=== PATIENT | male | born 1970 | race Caucasian/White ===

== ENCOUNTER 2019-09-01 14:19 | Emergency (ER) | payer SELFPAY ==
[2019-09-01 14:26] VITALS: BP 135/81; PULSE 112; RESP 16; TEMP 36.9; O2SAT 95
--- NOTE | 2019-09-01 14:29 | ECG_ITS ---
Measurements Intervals [place] Rate: 108 P: 83 NV: 147 QRS: 82 QRSD: 91 T: 73 QT: 342 QTc: 459 Interpretive Statements SINUS TACHYCARDIA BORDERLINE R WAVE PROGRESSION, ANTERIOR LEADS ABNORMAL ECG Electronically Signed On 09-01-2019 15:04:30 CDT by Chirag Murphy D.O.
[2019-09-01] MEDS: LORAZEPAM INJ 2 MG/ML VIAL IV PUSH (14:41)
--- NOTE | 2019-09-01 15:00 | PC.NURSE ---
SITTER PLAN INITIATED - ALL PAPERWORK DOCUMENTED PER HOSPITAL POLICY
--- NOTE | 2019-09-01 15:17 | PC.NURSE ---
[facility] AT [facility] PER SITTER POLICY.
[2019-09-01 15:19] LABS: Alanine Aminotransferase 57 U/L (16-63); Albumin Level 3.5 g/dL (3.4-5.0); Alkaline Phosphatase 72 U/L (46-116); Anion Gap 18.1 mmol/L (7-16); Aspartate Amino Transferase 82 U/L (15-37); Bilirubin,Total 0.2 mg/dL (0.00-1.00); Blood Urea Nitrogen 15 mg/dL (7-18); Calcium 8.2 mg/dL (8.5-10.1); Carbon Dioxide 27 mmol/L (21-32); Chloride 102 mmol/L (98-108); Estimated Glomerular Filt Rate > 60; Glucose 89 mg/dL (70-99); Osmolality Calculated 297 mOsm/kg (285-295); Potassium 3.1 mmol/L (3.5-5.1); Sodium 144 mmol/L (136-145); Thyroid Stimulating Hormone 2.01 uIU/mL (0.36-3.74); Total Protein 7.1 g/dL (6.4-8.2)
[2019-09-01 15:22] LABS: Ethanol 446 mg/dL (0-6)
[2019-09-01 15:28] LABS: Hemoglobin 15.7 g/dL (14.0-18.0); Red Blood Count 4.91 M/mm3 (4.70-6.10); White Blood Count 4.7 K/mm3 (4.8-10.8)
[2019-09-01 15:29] LABS: Hematocrit 46.7 % (40.0-54.0); Mean Corpuscular HGB Conc 33.6 g/dL (32.0-36.0); Mean Corpuscular Volume 95.1 fL (78.0-102.0); Mean Platelet Volume 9.9 fl (8.7-11.0); Platelet Count Result 141 K/mm3 (150-420); Red Cell Distribution Width 13.9 % (11.6-14.4)
[2019-09-01 15:30] LABS: Amphetamine Screen Urine Negative (Negative); Barbiturate Screen Urine Negative (Negative); Basophils Absolute Auto 0.06 K/mm3 (0.00-0.10); Basophils Percent Auto 1.3 % (0.0-1.0); Benzodiazepines Screen Urine Negative (Negative); Cannabinoid Screen Urine Negative (Negative); Cocaine Screen Urine Negative (Negative); Eosinophils Absolute Auto 0.04 K/mm3 (0.02-0.50); Eosinophils Percent Auto 0.8 % (1.0-6.0); Immature Granulocyte Absolute 0.01 K/mm3 (0.00-0.00); Immature Granulocyte Percent A 0.2 % (0.0-0.0); Lymphocytes Percent Auto 29.6 % (18.0-42.0); Methadone Screen Urine Negative (Negative); Monocytes Absolute Auto 0.34 K/mm3 (0.10-0.90); Monocytes Percent Auto 7.2 % (2.0-11.0); Neutrophils Absolute Auto 2.9 K/mm3 (1.7-7.2); Neutrophils Percent Auto 60.9 % (50.0-70.0); Opiate Screen Urine Negative (Negative); Phencyclidine Screen Urine Negative (Negative)
[2019-09-01 15:31] LABS: Appearance Urine Clear (Clear); Blood Urine 1+ (Negative); Color Urine Yellow (Yellow); Glucose Urine UA Negative (Negative); Ketones Urine Trace (Negative); Nitrate Urine Negative (Negative); Protein Urine Trace (Negative)
[2019-09-01 15:32] LABS: Add Urine Microscopic? YES; Amorphous Sediment Urine Moderate; Bacteria Urine 2+ /hpf; Bilirubin Urine Negative (Negative); Leukocyte Esterase Ur Negative (Negative); RBC Urine 0-2 /hpf (0-2); Squamous Epithelial Cell Urine Rare /hpf (Few); Urobilinogen Urine 0.2 mg/dL (0.2-1.0); WBC Urine 0-3 /hpf (0-3)
[2019-09-01 15:41] LABS: Lipase 242 U/L (73-393); Troponin I < 0.02 ng/mL (0.00-0.056)
[2019-09-01] MEDS: HALOPERIDOL LACTATE 5 MG/ML VIAL IV PUSH ×2 (15:42→23:03)
--- NOTE | 2019-09-01 15:46 | ED.ALCOHOL ---
HPI - Alcohol General Chief Complaint: Alcohol Stated Complaint: ambulance Source: patient and EMS Limitations: altered mental status and intoxication History of Present Illness HPI narrative: This is a 48-year-old gentleman that lives at home with history of alcohol abuse and apparent depression and anxiety that presents today via EMS with alcohol intoxication, patient drank over the last 2 to 3 days numerous bottles of vodka, currently anxious and of voices some suicide with no clear apparent plan but voiced that he had suicidal ideation on numerous occasions when nest. Has on previous times called EMS and never wanted to be transferred to any acute care facility. Has a history of alcohol abuse with tobacco abuse. MD complaint: alcohol intoxication Last drink: days (ago) Chronic alcohol use: Yes Previous visits for alcohol intoxication: No Recent trauma: No Associated symptoms: depression and suicidality Treatments prior to arrival: none Related Data Home Medications Medication Instructions Recorded Confirmed Unable to Obtain Home Medications 09/01/19 09/01/19 Allergies Allergy/AdvReac Type Severity Reaction Status Date / Time No Known Allergies Allergy Unverified 04/08/14 13:39 Review of Systems Review of Systems: All systems reviewed & are unremarkable except as noted in HPI and below PMFSH Past Medical History Medical History Anxiety ETOH abuse Exam Const: General: no acute distress Limitations: altered mental status and behavioral limitations HENMT: Head: normal to inspection Eyes: Conjunctivae: conjunctivae normal Pupils: Equal, round and reactive pupils present Neck: Neck: normal visual inspection Chest: Chest palpation & inspection: normal inspection of the chest Resp: Effort & Inspection: normal respiratory effort Auscultation: clear to auscultation bilaterally Cardio: Rate: regular rate and tachycardic Rhythm: regular rhythm GI: GI Palp: Yes Soft to palpation Percussion: Yes normal to percussion : Testes: Testes normal Urinary Catheter: Urinary Catheter: patent and draining Back/Spine/Pelvis: Back: no CVA tenderness Skin: General skin exam: normal color Rashes: no rashes Neuro: General: moves all extremities and no focal motor deficits Extrem: General: normal to inspection Psych: Affect: Anxious affect present Thought content: Yes Depressive thoughts present Other: Suicidal ideation Course Course Emergency Course: reassessment of patient was resting more comfortably lying in bed, initially had emotional lability but currently more stable not crying. Vital Signs Vital signs: Vital Signs Temperature 36.9 C 09/01/19 14:26 Pulse Rate 112 H 09/01/19 14:26 Respiratory Rate 16 09/01/19 14:26 Blood Pressure 135/81 09/01/19 14:26 Pulse Oximetry 95 09/01/19 14:26 Temperature 36.9 C 09/01/19 14:26 Pulse Rate 112 H 09/01/19 14:26 Respiratory Rate 16 09/01/19 14:26 Blood Pressure 135/81 09/01/19 14:26 Pulse Oximetry 95 09/01/19 14:26 MDM - Alcohol Lab Data Attestation: I reviewed the patient's lab results. Result diagrams: 09/01/19 14:49 09/01/19 14:49 Labs: Lab Results 09/01/19 09/01/19 09/01/19 Range/Units 14:48 14:49 14:49 WBC 4.7 L (4.8-10.8) K/mm3 RBC 4.91 (4.70-6.10) M/mm3 Hgb 15.7 (14.0-18.0) g/dL Hct 46.7 (40.0-54.0) % MCV 95.1 (78.0-102.0) fL MCH 32.0 H (27.0-31.0) pg MCHC 33.6 (32.0-36.0) g/dL RDW 13.9 (11.6-14.4) % Plt Count 141 L (150-420) K/mm3 MPV 9.9 (8.7-11.0) fl Immature Gran % (Auto) 0.2 H (0.0-0.0) % Neut % (Auto) 60.9 (50.0-70.0) % Lymph % (Auto) 29.6 (18.0-42.0) % Pettis % (Auto) 7.2 (2.0-11.0) % Eos % (Auto) 0.8 L (1.0-6.0) % Baso % (Auto) 1.3 H (0.0-1.0) % Lymph # (Auto) 1.40 (1.10-4.50) K/mm3 Pettis # (Auto) 0.34 (0.10-0.90) K/mm3 Eos # (Auto) 0.04 (0.02-0.50) K/mm3
--- NOTE | 2019-09-01 16:06 | PC.NURSE ---
REPORT CALLED TO CLYDE FOR ER HOLD ROOM [id number]
--- NOTE | 2019-09-01 16:15 | PC.NURSE ---
Patient transported to floor, via stretcher. Patient crawled from stretcher to bed. Sleeping
--- NOTE | 2019-09-01 16:19 | PC.NURSE ---
HI DAUGHTER [phone] - CALL PLACED TO HER, SHE STATES THAT THIS PATIENT HAS BEEN DOING THIS FOR 20 YEARS. STATES SHE IS NOT WORRIED ABOUT HIS SUICIDAL IDEATION. STATES THAT HE GETS THIS DRUNK AFTER A WEEK [facility] AND HE ENDS UP IN THE ER.
--- NOTE | 2019-09-01 16:30 | PC.NURSE ---
Patient sleeping. Sitter at bedside
--- NOTE | 2019-09-01 16:30 | PC.NURSE ---
Patient sleeping. Sitter at bedside
--- NOTE | 2019-09-01 17:00 | PC.NURSE ---
Patient sleeping. Sitter at beside.
--- NOTE | 2019-09-01 17:15 | PC.NURSE ---
Patient sleeping. Sitter at beside
--- NOTE | 2019-09-01 17:30 | PC.NURSE ---
Patient sleeping. Sitter at bedside
--- NOTE | 2019-09-01 17:45 | PC.NURSE ---
Patient sleeping. Sitter at bedside.
--- NOTE | 2019-09-01 18:00 | PC.NURSE ---
Patient sleeping. Sitter at bedside
--- NOTE | 2019-09-01 18:15 | PC.NURSE ---
Patient sleeping. Sitter at bedside
--- NOTE | 2019-09-01 18:30 | PC.NURSE ---
Patient sleeping. Sitter at bedside
--- NOTE | 2019-09-01 18:45 | PC.NURSE ---
Patient sleeping. Sitter at bedside.
--- NOTE | 2019-09-01 19:00 | PC.NURSE ---
Patient sleeping. No changes
--- NOTE | 2019-09-01 19:15 | PC.NURSE ---
Patient awake requested a drink. Meal provided. ate 75%. Asked what came next-what the plan work. Explained blood work and waiting for [address].
--- NOTE | 2019-09-01 19:30 | PC.NURSE ---
Sat up for a few minutes. Appears alert and oriented x3 at this time. Sitter with patient.
[2019-09-01 19:45] VITALS: BP 147/95; PULSE 105; RESP 18; TEMP 37.1; O2SAT 90
--- NOTE | 2019-09-01 19:50 | PC.NURSE ---
Patient resting at this time.
--- NOTE | 2019-09-01 21:00 | PC.NURSE ---
Patient dislodged IV Whole and intact.
--- NOTE | 2019-09-01 21:15 | PC.NURSE ---
new IV started. Patient taking fluids well
--- NOTE | 2019-09-01 21:30 | PC.NURSE ---
Patient requested more water.
--- NOTE | 2019-09-01 23:00 | PC.NURSE ---
scheduled haldol given.
--- NOTE | 2019-09-02 | PC.NURSE ---
Patient dislodged IV again. new IV inserted
[2019-09-02] MEDS: KCL 20 MEQ/SW 100 ML 100 ML 50 MEQ IVPB (00:56)
--- NOTE | 2019-09-02 01:00 | PC.NURSE ---
KCL started as ordered. thiamine bag completed.
--- NOTE | 2019-09-02 02:15 | PC.NURSE ---
Patient up to toilet. gait steady
--- NOTE | 2019-09-02 03:15 | PC.NURSE ---
Patient resting. KCL completed
[2019-09-02] MEDS: HALOPERIDOL LACTATE 5 MG/ML VIAL IV PUSH (06:09)
--- NOTE | 2019-09-02 06:20 | PC.NURSE ---
Patient given IV haldol. diaphretic
--- NOTE | 2019-09-02 06:30 | PC.NURSE ---
Patient dislodged IV. Did not reinsert at this time.
--- NOTE | 2019-09-02 07:30 | PC.NURSE ---
Patient pleasant, compliant
--- NOTE | 2019-09-02 07:45 | PC.NURSE ---
Patient resting in bed
--- NOTE | 2019-09-02 08:00 | PC.NURSE ---
Patient eating breakfast in bed.
[2019-09-02] MEDS: LORAZEPAM 1 MG TABLET PO (08:11)
--- NOTE | 2019-09-02 08:15 | PC.NURSE ---
Patient resting in bed
[2019-09-02 08:28] LABS: Alanine Aminotransferase 53 U/L (16-63); Albumin Level 3.5 g/dL (3.4-5.0); Alkaline Phosphatase 72 U/L (46-116); Anion Gap 12.5 mmol/L (7-16); Aspartate Amino Transferase 84 U/L (15-37); Bilirubin,Total 0.7 mg/dL (0.00-1.00); Blood Urea Nitrogen 16 mg/dL (7-18); Calcium 8.7 mg/dL (8.5-10.1); Carbon Dioxide 28 mmol/L (21-32); Chloride 99 mmol/L (98-108); Estimated Glomerular Filt Rate > 60; Glucose 125 mg/dL (70-99); Osmolality Calculated 282 mOsm/kg (285-295); Sodium 135 mmol/L (136-145); Total Protein 7.2 g/dL (6.4-8.2)
[2019-09-02 08:30] LABS: Ethanol < 3 mg/dL (0-6)
--- NOTE | 2019-09-02 08:30 | PC.NURSE ---
Patient resting in bed
[2019-09-02 08:31] LABS: Potassium 4.5 mmol/L (3.5-5.1)
[2019-09-02 08:34] VITALS: BP 142/89; PULSE 102; RESP 18; TEMP 36.4; O2SAT 93
--- NOTE | 2019-09-02 08:45 | PC.NURSE ---
Patient resting in bed, on phone. Lucas from [facility] coming for eval
--- NOTE | 2019-09-02 09:00 | PC.NURSE ---
Patient resting in bed.
--- NOTE | 2019-09-02 09:15 | PC.NURSE ---
Patient resting in bed
--- NOTE | 2019-09-02 09:23 | PC.NURSE ---
mental health made aware of him and lab levels. will get back with us for screening.
--- NOTE | 2019-09-02 09:30 | PC.NURSE ---
Patient resting in bed
--- NOTE | 2019-09-02 09:44 | PC.NURSE ---
Patient resting in bed. Lucas from [facility] coming for eval
--- NOTE | 2019-09-02 10:00 | PC.NURSE ---
Patient resting in bed
--- NOTE | 2019-09-02 10:15 | PC.NURSE ---
Patient resting in bed
--- NOTE | 2019-09-02 10:25 | PC.NURSE ---
Lucas from [facility] here
--- NOTE | 2019-09-02 10:45 | PC.NURSE ---
Patient resting in bed
--- NOTE | 2019-09-02 11:00 | PC.NURSE ---
Patient resting in bed
--- NOTE | 2019-09-02 11:15 | PC.NURSE ---
Patient resting in bed. [facility] OKed patient to go home after he signed Crisis safrty plan
--- NOTE | 2019-09-02 11:30 | PC.NURSE ---
Patient sitting up in bed.
--- NOTE | 2019-09-02 11:45 | PC.NURSE ---
Patient sitting up in bed
--- NOTE | 2019-09-02 12:00 | PC.NURSE ---
Patient getting dressed. Awaiting discharge
--- NOTE | 2019-09-02 12:15 | PC.NURSE ---
Patient transported off of floor, via wheelchair to ER for discharge
[2019-09-02 12:20] VITALS: BP 159/101; PULSE 108; O2SAT 96
== END 2019-09-02 12:25 | disposition home or self-care (01) ==
PROVIDERS: Emergency Medicine; Emergency Provider Family Medicine
DX: F10.129 Alcohol abuse with intoxication, unspecified (principal); F32.9 Major depressive disorder, single episode, unspecified
CPT/HCPCS: 36415; 51701; 80053; 80307; 81001; 83690; 84443; 84484; 85025; 93005; 96365; 96366; 96375; 99283; 99284; A9270; J1630; J2060; J3411; J3475; J3480; J7030

== ENCOUNTER 2020-01-16 19:31 | Emergency (ER) | payer OTHER, SELFPAY ==
--- NOTE | 2020-01-16 19:39 | ECG_ITS ---
Measurements Intervals [place] Rate: 95 P: 87 [place]: 155 QRS: 81 QRSD: 87 T: 80 QT: 361 QTc: 455 Interpretive Statements SINUS RHYTHM POSSIBLE RIGHT ATRIAL ENLARGEMENT BORDERLINE ECG Electronically Signed On 01-17-2020 6:54:14 CDT by Chirag Murphy D.O.
--- NOTE | 2020-01-16 19:39 | ED.OVERDOSE ---
HPI - Overdose General Chief Complaint: Overdose <Anthony Ernst MD - Last Filed: 01/17/20 06:21> Stated Complaint: AMB <Anthony Ernst MD - Last Filed: 01/17/20 06:21> Source: patient, EMS and RN notes reviewed <Anthony Ernst MD - Last Filed: 01/17/20 06:21> Mode of arrival: EMS <Anthony Ernst MD - Last Filed: 01/17/20 06:21> Limitations: intoxication <Anthony Ernst MD - Last Filed: 01/17/20 06:21> History of Present Illness HPI Narrative: patient has a history of alcohol abuse in the past. He has had some problems depression. Apparently just discharge from [facility] yesterday. Apparently family members were concerned called police. He was found unable to respond to verbal stimuli but breathing and eyes open. On arrival he is now more talkative. Originally had been combative. Now he is asking what happened and he does report that he took everything that he had which include BuSpar, Prozac, Librium, and clonazepam because he wanted to . Unknown quantities. Again he is awake and alert and answering questions appears sleepy but not having any difficulty breathing. <Anthony Ernst MD - Last Filed: 01/17/20 06:21> MD complaint: intentional overdose <Anthony Ernst MD - Last Filed: 01/17/20 06:21> Onset (ago): unknown <Anthony Ernst MD - Last Filed: 01/17/20 06:21> Timing confirmed by: family member <Anthony Ernst MD - Last Filed: 01/17/20 06:21> Intent: suicide attempt <Anthony Ernst MD - Last Filed: 01/17/20 06:21> Context: Intentional Overdose: drug/ETOH problems <Anthony Ernst MD - Last Filed: 01/17/20 06:21> Treatments Prior to Arrival: none <Anthony Ernst MD - Last Filed: 01/17/20 06:21> Related Data Home Medications: Home Medications Medication Instructions Recorded Confirmed buspirone 7.5 mg PO DAILY 01/16/20 01/17/20 fluoxetine 40 mg PO DAILY 01/16/20 01/17/20 <Anthony Ernst MD - Last Filed: 01/17/20 06:21> Allergies/Adverse Reactions: Allergies Allergy/AdvReac Type Severity Reaction Status Date / Time No Known Allergies Allergy Unverified 04/08/14 13:39 <Anthony Ernst MD - Last Filed: 01/17/20 06:21> Review of Systems Review of Systems: ROS unobtainable: Yes unobtainable due to medical condition <Anthony Ernst MD - Last Filed: 01/17/20 06:21> [facility] Past Medical History Medical History: Medical History Anxiety COPD (chronic obstructive pulmonary disease) ETOH abuse <Anthony Ernst MD - Last Filed: 01/17/20 06:21> Exam Const: General: no acute distress, alert and confusion <Anthony Ernst MD - Last Filed: 01/17/20 06:21> Nutritional Appearance: thin <Anthony Ernst MD - Last Filed: 01/17/20 06:21> HENMT: Head: normal to inspection <Anthony Ernst MD - Last Filed: 01/17/20 06:21> Ears: external ears normal <Anthony Ernst MD - Last Filed: 01/17/20 06:21> Face and sinus: normal facial exam <Anthony Ernst MD - Last Filed: 01/17/20 06:21> Eyes: Conjunctivae: conjunctivae normal <Anthony Ernst MD - Last Filed: 01/17/20 06:21> Pupils: Equal, round and reactive pupils present <Anthony Ernst MD - Last Filed: 01/17/20 06:21> EOM: EOMs intact bilaterally <Anthony Ernst MD - Last Filed: 01/17/20 06:21> Neck: Neck: normal visual inspection <Anthony Ernst MD - Last Filed: 01/17/20 06:21> Resp: Effort & Inspection: normal respiratory effort <Anthony Ernst MD - Last Filed: 01/17/20 06:21> Auscultation: clear to auscultation bilaterally <Anthony Ernst MD - Last Filed: 01/17/20 06:21> Cardio: Rate: regular rate <Anthony Ernst MD - Last Filed: 01/17/20 06:21> Rhythm: regular rhythm <Anthony Ernst MD - Last Filed: 01/17/20 06:21> GI: GI Palp: Yes Soft to palpation and No Tenderness to palpation present (GI) <Anthony Ernst MD - Last Filed: 01/17/20 06:21> Auscultation: normal bowel sounds <Anthony Ernst MD - Last Filed
[2020-01-16 19:41] VITALS: BP 125/92; PULSE 102; RESP 18; TEMP 36.6; O2SAT 94
[2020-01-16 19:56] LABS: Basophils Absolute Auto 0.09 K/mm3 (0.00-0.10); Basophils Percent Auto 1.1 % (0.0-1.0); Eosinophils Absolute Auto 0.23 K/mm3 (0.02-0.50); Eosinophils Percent Auto 2.9 % (1.0-6.0); Hematocrit 54.9 % (40.0-54.0); Hemoglobin 16.8 g/dL (14.0-18.0); Immature Granulocyte Absolute 0.02 K/mm3 (0.00-0.00); Immature Granulocyte Percent A 0.3 % (0.0-0.0); Lymphocytes Absolute Auto 1.76 K/mm3 (1.10-4.50); Mean Corpuscular HGB Conc 30.6 g/dL (32.0-36.0); Mean Corpuscular Hemoglobin 32.6 pg (27.0-31.0); Mean Corpuscular Volume 106.6 fL (78.0-102.0); Mean Platelet Volume 11.7 fl (8.7-11.0); Monocytes Absolute Auto 0.36 K/mm3 (0.10-0.90); Monocytes Percent Auto 4.5 % (2.0-11.0); Neutrophils Absolute Auto 5.5 K/mm3 (1.7-7.2); Neutrophils Percent Auto 69.2 % (50.0-70.0); Platelet Count Result 198 K/mm3 (150-420); Red Blood Count 5.15 M/mm3 (4.70-6.10); Red Cell Distribution Width 13.5 % (11.6-14.4)
[2020-01-16] MEDS: SODIUM CHLORIDE 0.9% IV 1,000 ML 999 ML IV CONT (19:58)
[2020-01-16 20:04] VITALS: BP 126/83; PULSE 100; RESP 16
[2020-01-16 20:12] LABS: Alanine Aminotransferase 368 U/L (16-63); Alkaline Phosphatase 80 U/L (46-116); Anion Gap 13 mmol/L (8-16); Bilirubin,Total 0.5 mg/dL (0.00-1.00); Blood Urea Nitrogen 24 mg/dL (7-18); Calcium 9.4 mg/dL (8.5-10.1); Carbon Dioxide 27 mmol/L (21-32); Chloride 105 mmol/L (98-108); Estimated Glomerular Filt Rate > 60; Glucose 127 mg/dL (70-99); Magnesium 2.1 mg/dL (1.8-2.4); Osmolality Calculated 306 mOsm/kg (285-295); Potassium 4.3 mmol/L (3.5-5.1); Sodium 145 mmol/L (136-145); Total Protein 8.6 g/dL (6.4-8.2)
[2020-01-16 20:15] LABS: Ethanol 228 mg/dL (0-6)
[2020-01-16 20:16] LABS: Acetaminophen 0 ug/mL (10-30); Salicylate 3.5 mg/dL (2.8-20.0)
--- NOTE | 2020-01-16 20:21 | PC.NURSE ---
Called [place] [facility] - Spoke to Shima. Supportive care only, do not give romazicon. Check CPK and PT/INR now. repeat all labs in 6 hrs.
[2020-01-16 20:40] VITALS: BP 138/87; PULSE 100; RESP 16; O2SAT 94
[2020-01-16 20:56] LABS: Prothrombin Time 10.3 Seconds (9.64-11.0)
[2020-01-16 20:57] LABS: Creatine Kinase 103 U/L (39-308)
[2020-01-16 20:57] LABS: Aspartate Amino Transferase 179 U/L (15-37)
[2020-01-16 21:25] VITALS: BP 111/69; PULSE 102; RESP 16; O2SAT 94
[2020-01-16 22:12] VITALS: BP 117/73; PULSE 102; RESP 20; O2SAT 93
--- NOTE | 2020-01-16 22:37 | PC.NURSE ---
Pt sleeping, VSS, report to Abdi DODD
--- NOTE | 2020-01-16 23:44 | PC.NURSE ---
2245 pt sleeping, repositions self in cot. direct vision of this advertising writer. 2315 pt sleeping, no distress. respiration even and unlabored. 2345 pt sleeping.
[2020-01-17] VITALS (8 sets, daily range): BP systolic 109–132; BP diastolic 66–91; PULSE 58–100; RESP 18–20; O2SAT 92–98
--- NOTE | 2020-01-17 01:13 | PC.NURSE ---
0015 pt sleeping, 0045 pt sleeping, 0115 pt sleeping.
--- NOTE | 2020-01-17 02:12 | PC.NURSE ---
0145 pt sleeping. 0210 pt awake, requesting urinal. pt up to bedside. unsteady when standing. applied yellow gripper socks, fall risk sticker to name band. assisted back to bed. pt aware he is at a hospital. denies any suicidal ideation at this time. oriented to treatment and procedure for repeat labs and crisis assessment when etoh level is below 80. pt is unoriented to time of day, town. encouraged sleep, warm blanket applied. ice water supplied.
--- NOTE | 2020-01-17 03:19 | PC.NURSE ---
Addendum entered by Abdi Peterson RN 01/17/20 06:36: spoke with Anurag. Original Note: update to poison control. suggested repeat ekg and liver enzymes along with repeat etoh level in am
--- NOTE | 2020-01-17 04:17 | PC.NURSE ---
0315 pt sleeping, 0345 pt sleeping, 0415 pt sleeping
--- NOTE | 2020-01-17 06:00 | PC.NURSE ---
0430 pt sleeping, 0515 pt sleeping. 0545 pt sleeping.
--- NOTE | 2020-01-17 06:19 | ECG_ITS ---
Measurements Intervals [place] Rate: 104 P: 89 NC: 144 QRS: 81 QRSD: 85 T: 80 QT: 338 QTc: 446 Interpretive Statements SINUS TACHYCARDIA POSSIBLE RIGHT ATRIAL ENLARGEMENT BORDERLINE ECG Electronically Signed On 01-17-2020 6:54:30 CDT by Chirag Murphy D.O.
--- NOTE | 2020-01-17 06:37 | PC.NURSE ---
call from padmini from poison control, update given.
--- NOTE | 2020-01-17 06:38 | PC.NURSE ---
call from pt daughter, sal mack, states she called police last night for wellness check. states pt was calling family and friends, telling them goodbye and that he had taken a bunch of pills. when daughter tried to call pt he wouldnt answer the phone.
--- NOTE | 2020-01-17 06:42 | PC.NURSE ---
pt awake for labs and repeat ekg. pt back to sleep.
[2020-01-17 06:58] LABS: Alanine Aminotransferase 282 U/L (16-63); Albumin Level 3.5 g/dL (3.4-5.0); Alkaline Phosphatase 71 U/L (46-116); Anion Gap 7 mmol/L (8-16); Aspartate Amino Transferase 134 U/L (15-37); Bilirubin,Total 0.3 mg/dL (0.00-1.00); Blood Urea Nitrogen 24 mg/dL (7-18); Carbon Dioxide 31 mmol/L (21-32); Chloride 108 mmol/L (98-108); Creatine Kinase 80 U/L (39-308); Estimated Glomerular Filt Rate > 60; Ethanol < 3 mg/dL (0-6); Glucose 75 mg/dL (70-99); Osmolality Calculated 305 mOsm/kg (285-295); Potassium 3.9 mmol/L (3.5-5.1); Sodium 146 mmol/L (136-145); Total Protein 6.8 g/dL (6.4-8.2)
--- NOTE | 2020-01-17 07:12 | PC.NURSE ---
poison control called and given updated lab and ekg results. spoke with
[2020-01-17 07:47] LABS: Amphetamine Screen Urine Negative (Negative); Barbiturate Screen Urine Negative (Negative); Benzodiazepines Screen Urine Positive (Negative); Cannabinoid Screen Urine Positive (Negative); Cocaine Screen Urine Negative (Negative); Methadone Screen Urine Negative (Negative); Opiate Screen Urine Negative (Negative); Phencyclidine Screen Urine Negative (Negative)
--- NOTE | 2020-01-17 07:53 | PC.NURSE ---
food tray given, pt remains in direct vision of this information writer.
--- NOTE | 2020-01-17 08:11 | PC.NURSE ---
pt ate 100% of meal. back to sleep, remains in direct vision of this television script writer.
--- NOTE | 2020-01-17 08:18 | PC.NURSE ---
Addendum entered by Abdi Peterson RN 01/17/20 08:26: 0710 noted pt to be incontinent of stool, skin care given. pull up brief applied. all personal belongings removed from room. pt more alert to whereabouts, states does not remember making any phone calls to friends and family last night alerting them that he had taken pills. when asked if he would harm himself or if he had any suicidal ideation, pt states i honestly cant answer that. . Original Note: 0710 pt awakened, accepted breakfast tray offered, explained need for urine. pt up to side of bed to use urinal
--- NOTE | 2020-01-17 08:25 | PC.NURSE ---
per dr nuñez, cardiac monitoring can be discontinued. wires removed from pt and from room.
--- NOTE | 2020-01-17 08:28 | PC.NURSE ---
pt directly back to sleep as soon as any interaction with this speech writer stops.
[2020-01-17] MEDS: ALBUTEROL SULFATE (*SP) INHALER 4 PUFF INHALATION (08:50)
--- NOTE | 2020-01-17 09:08 | PC.NURSE ---
pt awakened to clarify home medications. back to sleep after conversation.
--- NOTE | 2020-01-17 09:48 | PC.NURSE ---
pt sleeping , awakened for crisis assessment with alena.
--- NOTE | 2020-01-17 10:35 | PC.NURSE ---
update to padmini from poison control, sandy out to speak with supervisor electronic testing. sitter initiated at this time as there are now other pts in er. per alena, pt to be admitted voluntarily . will attempt placement.
--- NOTE | 2020-01-17 11:39 | PC.NURSE ---
Addendum entered by Abdi Peterson RN 01/17/20 11:40: report to nicholas lo. care turned over. Original Note: food tray ordered for lunch, pt sleeping, sitter Annabelle outside of room. alena continues to attempt to find placement.
--- NOTE | 2020-01-17 11:47 | PC.NURSE ---
call from [facility], requesting pt be covid tested and UA results. dr nuñez aware of same.
[2020-01-17 12:08] LABS: Add Urine Microscopic? NO; Appearance Urine Clear (Clear); Bilirubin Urine Negative (Negative); Blood Urine Negative (Negative); Color Urine Yellow (Yellow); Glucose Urine UA Negative (Negative); Ketones Urine Negative (Negative); Leukocyte Esterase Ur Negative (Negative); Nitrate Urine Negative (Negative); Protein Urine Negative (Negative); Specific Grav Ur 1.025 (1.010-1.020); Urobilinogen Urine 0.2 mg/dL (0.2-1.0); pH Urine 5.5 (5.0-8.0)
--- NOTE | 2020-01-17 13:09 | PC.NURSE ---
No change in pt status, pt resting comfortably on stretcher. sitter at bedside. awaiting psych placement.
[2020-01-17 22:14] LABS: SARS-CoV-2 RNA PCR Negative
== END 2020-01-17 14:31 | disposition short-term general hospital (02) ==
PROVIDERS: Emergency Medicine; Emergency Provider Emergency Medicine
DX: T50.992A Poisoning by other drugs, medicaments and biological substances, intentional self-harm, initial encounter (principal); F10.129 Alcohol abuse with intoxication, unspecified; R45.1 Restlessness and agitation; F12.90 Cannabis use, unspecified, uncomplicated; R94.5 Abnormal results of liver function studies; Z79.899 Other long term (current) drug therapy; Z20.828 Contact with and (suspected) exposure to other viral communicable diseases
CPT/HCPCS: 36415; 80053; 80307; 81003; 82550; 83735; 85025; 85610; 87635; 93005; 94640; 96360; 99285; A9270; C9803; J7030; U0003

== ENCOUNTER 2020-03-27 14:42 | Emergency (ER) | payer OTHER, SELFPAY ==
--- NOTE | ~2020-03-27 | XR_ITS ---
EXAMINATION: XR chest 1V portable EXAM DATE: 03/27/2020 15:26 INDICATION: anxiety, general chest pain, H/O COPD. TECHNIQUE: Portable AP frontal chest x-ray was obtained. A 2nd image obtained with nipple markers aft er review of the initial image. There is no prior study for comparison. FINDINGS: The lungs are clear. There are no pleural effusions. The cardiomediastinal silhouette is within normal limits. There is no pneumothorax suspected. The bones and soft tissues are unremarka ble. IMPRESSION: No acute cardiopulmonary findings. Reviewed, dictated and finalized at location B. AL AIDE
--- NOTE | 2020-03-27 14:48 | ED.PSYCH ---
HPI - Psych General Chief Complaint: Psychiatric Symptoms Stated Complaint: psych. Time Seen by Provider: 03/27/20 14:48 Source: patient and police Mode of arrival: ambulatory Limitations: other ( Patient talked mostly to the nurse but refused to describe his current situation with me.) History of Present Illness HPI Narrative: 49-year-old man with a history of alcohol abuse, COPD and anxiety brought to the emergency department by EMS after somebody called the police because they were concerned about him. He states that he is questioning his role in the world because his girlfriend broke up with him recently. He denies having expressed suicidal thoughts or desire and denies having done anything to harm himself. He denies intent to harm anyone else. He expresses a desire to go home. complaint: other (agitation, sobbing) Onset (ago): day(s) Duration: resolved prior to arrival Context: recent alcohol abuse Associated symptoms: denies other symptoms Treatments prior to arrival: none Related Data Home Medications Medication Instructions Recorded Confirmed buspirone 7.5 mg PO DAILY 01/16/20 01/17/20 fluoxetine 40 mg PO DAILY 01/16/20 01/17/20 Allergies Allergy/AdvReac Type Severity Reaction Status Date / Time No Known Allergies Allergy Unverified 04/08/14 13:39 Review of Systems Constitutional: Constitutional: Denies chills, Denies fever(s) and Denies weakness Eyes: Eyes: Denies change in vision and Denies photophobia ENT: Denies dysphagia, Denies nasal congestion and Denies sore throat Cardiovascular: Cardiovascular: Denies chest pain and Denies radiating jaw, neck or arm pain Respiratory: Respiratory: Denies cough and Denies dyspnea Gastrointestinal: Gastrointestinal: Denies abdominal pain, Denies nausea and Denies vomiting Musculoskeletal: Musculoskeletal: Denies arthralgias and Denies joint swelling Neurologic: Denies vertigo, Denies dizziness, Denies syncope, Denies headache(s), Denies focal weakness and Denies numbness Psychiatric: Psychiatric: Reports anxiety PMFSH Past Medical History Medical History Anxiety COPD (chronic obstructive pulmonary disease) ETOH abuse Social History Social History (Updated 03/27/20 @ 19:03 by Jonathan Stratton MD) Smoking status: Current every day smoker Alcohol intake: current Alcohol use details: Daily Substance use: former Substance use type: marijuana Living arrangements: with friend(s) Exam Const: General: healthy appearing, no acute distress and alert HENMT: General nose exam: Normal nares present Face and sinus: normal facial exam Throat: posterior oropharynx normal Eyes: Conjunctivae: conjunctivae normal Pupils: Equal, round and reactive pupils present EOM: EOMs intact bilaterally Resp: Effort & Inspection: normal respiratory effort and not labored Auscultation: clear to auscultation bilaterally, no rales, no rhonchi and no wheezes Cardio: Rate: regular rate Rhythm: regular rhythm Heart sounds: no murmurs Skin: General skin exam: normal color, no jaundice and no pallor Rashes: no rashes Neuro: General: patient oriented x3, moves all extremities, no focal motor deficits and CN's II-XI intact bilaterally Speech: normal speech Gait exam (Neuro): Normal gait present Extrem: General: normal to inspection and no clubbing, cyanosis or edema Psych: Appearance: grossly normal Mental Status: mental status grossly normal Affect: Sad affect present Thought content: Yes Normal thought content present Other: Patient is alternately angry and sobbing. He cooperates poorly with initial interview however with repeated conversations is able to explain his current state. Course Course Emergency Course: Patient repeatedly asked to leave however I explained to him that unless he had responsible adult who could escort him home and take responsibility for his safety, he would not be able to leave the emergency department. He mad
[2020-03-27 15:03] VITALS: PULSE 105; RESP 20; TEMP 36.6; O2SAT 94
--- NOTE | 2020-03-27 15:03 | ECG_ITS ---
Measurements Intervals [place] Rate: 101 P: 91 MD: 148 QRS: 86 QRSD: 92 T: 82 QT: 338 QTc: 440 Interpretive Statements SINUS TACHYCARDIA LIMB LEAD REVERSAL RIGHT ATRIAL ENLARGEMENT BORDERLINE R WAVE PROGRESSION, ANTERIOR LEADS MINIMAL Q WAVES- INFERIOR LEADS BORDERLINE ECG Electronically Signed On 03-27-2020 15:59:52 PCAS by Chirag Murphy D.O.
[2020-03-27 15:23] LABS: Basophils Absolute Auto 0.15 K/mm3 (0.00-0.10); Basophils Percent Auto 1.2 % (0.0-1.0); Eosinophils Absolute Auto 0.05 K/mm3 (0.02-0.50); Eosinophils Percent Auto 0.4 % (1.0-6.0); Hematocrit 56.1 % (40.0-54.0); Immature Granulocyte Absolute 0.04 K/mm3 (0.00-0.00); Immature Granulocyte Percent A 0.3 % (0.0-0.0); Lymphocytes Absolute Auto 2.45 K/mm3 (1.10-4.50); Lymphocytes Percent Auto 18.8 % (18.0-42.0); Mean Corpuscular HGB Conc 33.9 g/dL (32.0-36.0); Mean Corpuscular Hemoglobin 33.2 pg (27.0-31.0); Mean Corpuscular Volume 98.1 fL (78.0-102.0); Mean Platelet Volume 9.7 fl (8.7-11.0); Monocytes Absolute Auto 0.89 K/mm3 (0.10-0.90); Monocytes Percent Auto 6.8 % (2.0-11.0); Neutrophils Absolute Auto 9.4 K/mm3 (1.7-7.2); Neutrophils Percent Auto 72.5 % (50.0-70.0); Platelet Count Result 235 K/mm3 (150-420); Red Blood Count 5.72 M/mm3 (4.70-6.10); Red Cell Distribution Width 14.1 % (11.6-14.4)
--- NOTE | 2020-03-27 15:46 | PC.NURSE ---
pt refusing to provide urine sample
[2020-03-27 15:47] LABS: Alanine Aminotransferase 29 U/L (16-63); Albumin Level 4.3 g/dL (3.4-5.0); Alkaline Phosphatase 76 U/L (46-116); Anion Gap 19 mmol/L (8-16); Aspartate Amino Transferase 38 U/L (15-37); Bilirubin,Total 0.4 mg/dL (0.00-1.00); Blood Urea Nitrogen 24 mg/dL (7-18); Calcium 9.1 mg/dL (8.5-10.1); Carbon Dioxide 23 mmol/L (21-32); Chloride 96 mmol/L (98-108); Estimated CRCL calculation 89 ml/min; Estimated Glomerular Filt Rate > 60; Glucose 99 mg/dL (70-99); Osmolality Calculated 290 mOsm/kg (285-295); Potassium 3.8 mmol/L (3.5-5.1); Sodium 138 mmol/L (136-145); Thyroid Stimulating Hormone 3.49 uIU/mL (0.36-3.74); Total Protein 8.1 g/dL (6.4-8.2)
[2020-03-27 15:52] LABS: Ethanol 344 mg/dL (0-6); Troponin I 5.9 ng/L (0.00-60.4)
[2020-03-27 15:53] LABS: Acetaminophen < 2 ug/mL (10-30); Salicylate 4.4 mg/dL (2.8-20.0)
[2020-03-27 16:32] VITALS: BP 128/86; PULSE 106; RESP 16; O2SAT 96
--- NOTE | 2020-03-27 16:36 | PC.NURSE ---
pt resting comfortably on stretcher, lights dimmed.
--- NOTE | 2020-03-27 17:14 | PC.NURSE ---
Pt sitting up on stretcher, pt given meal because he states he is hungry. this rn requested a urine sample, pt still unable to provide. pt on cell phone.
--- NOTE | 2020-03-27 17:48 | PC.NURSE ---
Pt laying on stretcher talking on phone with girlfriend.
[2020-03-27 17:50] VITALS: BP 124/98; PULSE 82; RESP 16; O2SAT 97
--- NOTE | 2020-03-27 18:01 | PC.NURSE ---
Pt up yelling stating he wants his clothing and would like to leave right now. pt advised per edp that he must have a responsible adult to come pick him up. pt denies any suicidal or homicidal ideation. pt yelling at person on phone trying to get a ride home and pt removed himself from all monitoring.
== END 2020-03-27 18:51 | disposition home or self-care (01) ==
LOC: CHSED 14:44
PROVIDERS: Emergency Provider Emergency Medicine
DX: F10.129 Alcohol abuse with intoxication, unspecified (principal); F17.200 Nicotine dependence, unspecified, uncomplicated
CPT/HCPCS: 36415; 71045; 80053; 80307; 84443; 84484; 85025; 93005; 99284

== ENCOUNTER 2022-05-03 07:14 | Outpatient (CLI) | payer OTHER, SELFPAY ==
[2022-05-03 07:33] LABS: Basophils Absolute Auto 0.08 K/mm3 (0.00-0.10); Basophils Percent Auto 1.6 % (0.0-1.0); Eosinophils Absolute Auto 0.26 K/mm3 (0.02-0.50); Hematocrit 50.1 % (40.0-54.0); Hemoglobin 16.8 g/dL (14.0-18.0); Immature Granulocyte Absolute 0.01 K/mm3 (0.00-0.00); Immature Granulocyte Percent A 0.2 % (0.0-0.0); Lymphocytes Absolute Auto 1.41 K/mm3 (1.10-4.50); Lymphocytes Percent Auto 27.3 % (18.0-42.0); Mean Corpuscular HGB Conc 33.5 g/dL (32.0-36.0); Mean Corpuscular Hemoglobin 32.5 pg (27.0-31.0); Mean Corpuscular Volume 96.9 fL (78.0-102.0); Mean Platelet Volume 10.4 fl (8.7-11.0); Monocytes Absolute Auto 0.45 K/mm3 (0.10-0.90); Monocytes Percent Auto 8.7 % (2.0-11.0); Neutrophils Percent Auto 57.2 % (50.0-70.0); Platelet Count Result 148 K/mm3 (150-420); Red Blood Count 5.17 M/mm3 (4.70-6.10); Red Cell Distribution Width 12.7 % (11.6-14.4); White Blood Count 5.2 K/mm3 (4.8-10.8)
[2022-05-03 07:55] LABS: Hemoglobin A1C 5.5 % (<5.7)
[2022-05-03 08:30] LABS: Alanine Aminotransferase 19 U/L (16-63); Albumin Level 3.8 g/dL (3.4-5.0); Alkaline Phosphatase 62 U/L (46-116); Anion Gap 4 mmol/L (8-16); Aspartate Amino Transferase 20 U/L (15-37); Bilirubin,Total 0.4 mg/dL (0.00-1.00); Blood Urea Nitrogen 17 mg/dL (7-18); Calcium 8.8 mg/dL (8.5-10.1); Carbon Dioxide 34 mmol/L (21-32); Chloride 106 mmol/L (98-108); Cholesterol 173 mg/dL (0-200); Estimated Glomerular Filt Rate > 60; Glucose 101 mg/dL (70-99); HDL Direct 62 mg/dL (40-60); LDL Cholesterol Calculated 105 mg/dL (<130); Osmolality Calculated 299 mOsm/kg (285-295); Potassium 4.5 mmol/L (3.5-5.1); Sodium 144 mmol/L (136-145); Total Protein 6.7 g/dL (6.4-8.2); Triglycerides 31 mg/dL (0-150); Vitamin B12 518 pg/mL (193-986)
[2022-05-03 08:50] LABS: Thyroid Stimulating Hormone 2.49 uIU/mL (0.36-3.74)
[2022-05-03 08:51] LABS: Folic Acid > 20.0 ng/mL (8.6->20)
[2022-05-08 17:23] LABS: Vitamin D 25 Hydroxy 35 ng/mL (30-100)
== END 2022-05-03 07:15 | disposition home or self-care (01) ==
LOC: CHSLAB 07:18
PROVIDERS: PCP Nurse Practitioner Family; Visit Provider Nurse Practitioner Family
DX: Z51.81 Encounter for therapeutic drug level monitoring (principal); Z79.899 Other long term (current) drug therapy; F32.9 Major depressive disorder, single episode, unspecified; F41.1 Generalized anxiety disorder
CPT/HCPCS: 36415; 80053; 80061; 82306; 82607; 82746; 83036; 84443; 85025

== ENCOUNTER 2022-06-18 08:57 | Outpatient (CLI) | payer OTHER, SELFPAY ==
--- NOTE | 2022-06-18 | ECG_ITS ---
Measurements Intervals [place] Rate: 75 P: 87 [place]: 164 QRS: 75 QRSD: 93 T: 74 QT: 390 QTc: 436 Interpretive Statements SINUS RHYTHM BORDERLINE R WAVE PROGRESSION, ANTERIOR LEADS BORDERLINE ECG COMPARED TO ECG 03/27/2020 15:22:37 SINUS RHYTHM NOW PRESENT Electronically Signed On 06-18-2022 14:15:58 CDT by Chirag Murphy D.O.
--- NOTE | ~2022-06-18 | XR_ITS ---
XR chest 2V DATE: 06/18/2022 09:38 INDICATION: Dyspnea on exertion, palpitations TECHNIQUE: PA and lateral views COMPARISON: 03/27/2020 portable AP chest FINDINGS: Bilateral hyperinflation and relative flattening the diaphragm, consistent with COPD. No pu lmonary infiltrate or consolidation, pleural effusion or pulmonary vascular congestion or pneumothora x is detected. Normal heart size. No hilar or mediastinal enlargement. Aortic arch calcification. Osteopenia. Likely chronic mild loss of height and anterior wedging of multiple thoracic vertebral bodies. COPD IMPRESSION: Aortic atherosclerosis Osteopenia Reviewed, dictated and finalized at location B.
--- NOTE | ~2022-06-18 | US_ITS ---
Abdominal Sonogram: Real-time sonographic imaging of the abdomen was performed. Clinical History: Abdominal pain Findings: The liver appears normal with no evidence of mass lesion or bile duct dilatation. Main por federica vein demonstrates normal direction of flow. The spleen is normal in size without evidence of foca l lesion. The gallbladder is well distended, and appears normal with no evidence of gallstone or wal l thickening. The common bile duct measures 5 mm. There is atherosclerotic change of the aorta. Visua lized pancreas and IVC are unremarkable. The right kidney measures 12.1 cm in length and the left ki dney measures 12.2 cm. There is no hydronephrosis or renal calculus. Impression: No significant abnormality seen. Reviewed, dictated and finalized at location . Impression: No significant abnormality seen.
--- NOTE | 2022-06-19 16:40 | WPDPFTINT ---
PFT Procedure Performed PFT Procedure Performed Plethysmography (Lung Vol) Diffusing Cap (DLCO) Flow Vol Loop Spirometry w/o Bronchodil PFT Interpretation This is a pulmonary function test with spirometry, plethysmography and diffusing capacity. The test was performed and results interpreted in accordance with the 2019 and 2005 ATS/ERS Task Force guidelines respectively using the Global Lung Function Initiative-2012 reference equations. Patient demonstrated good effort and cooperation. Reproducibility criteria were met. The quality of the spirometry maneuver was Grade A. Findings: Spirometry: There is decreased maximal expiratory airflow at all lung volumes with concave expiratory flow tracing. The contour the inspiratory flow tracing is normal. The FVC is 2.81 L, 57% predicted. The FEV1 is 0.76 L, 20% predicted. The FEV1: FVC ratio is 27%. Plethysmography: The total lung capacity is 9.65 L, 138% predicted. The functional residual capacity is 7.82 L, 218% predicted. The residual volume is 6.64 L, 316% predicted. Diffusing capacity: The diffusing capacity unadjusted for hemoglobin and carboxyhemoglobin is 17.5, 58% predicted. The diffusing capacity adjusted for alveolar volume is 2.74, 62% predicted. Impression: There is a very severe obstructive abnormality. The increase in residual volume is consistent with air trapping from an obstructive abnormality. Hyperinflation is present as demonstrated by the increase in functional residual capacity and total lung capacity and is consistent with an obstructive abnormality. The diffusing capacity unadjusted for hemoglobin and carboxyhemoglobin is moderately decreased and normalizes when adjusted for alveolar volume. Impression: There is a moderately severe restrictive ventilatory abnormality. The spirometry is normal without evidence of an obstructive abnormality. The diffusing capacity unadjusted for hemoglobin and carboxyhemoglobin is moderately decreased and remains mildly decreased when adjusted for alveolar volume. There are no prior studies for comparison
== END 2022-06-18 08:58 | disposition home or self-care (01) ==
PROVIDERS: PCP Internal Medicine; Visit Provider Internal Medicine
DX: R06.09 Other forms of dyspnea (principal); R00.2 Palpitations; R94.2 Abnormal results of pulmonary function studies; I70.0 Atherosclerosis of aorta; M85.88 Other specified disorders of bone density and structure, other site; R94.31 Abnormal electrocardiogram [ECG] [EKG]
CPT/HCPCS: 71046; 76700; 93005; 94375; 94726; 94729

== ENCOUNTER 2022-06-25 07:19 | Outpatient (NON) | payer OTHER, SELFPAY | END 2022-06-26 07:20 | disposition home or self-care (01) | PROVIDERS: PCP Internal Medicine; Visit Provider Internal Medicine Gastroenterology | DX: R63.4 Abnormal weight loss (principal) | CPT/HCPCS: 88305 ==

== ENCOUNTER 2022-06-25 12:19 | Day surgery (SDC) | payer OTHER, SELFPAY ==
[2022-06-19 07:52] VITALS: BMI 19.5
[2022-06-19 12:35] VITALS: BMI 19.7
--- NOTE | 2022-06-25 10:15 | P.PNAN_ITS ---
Anes - Initial Pre Proc Eval Procedure: Operation Date: 06/25/22 14:30 Proposed Procedures p Esophagogastroduodenoscopy - Deonte Menendez MD s Diagnostic Colonoscopy - Deonte Menendez MD Date/Time: 06/25/22 10:15 Surgeon: Deonte Menendez MD Pre Op Diagnosis: Epigastric pain, nausea, weight loss, Patient Data Age: 51 Gender: M Height: 1.83 m Weight: 66 kg Allergies Allergy/AdvReac Type Severity Reaction Status Date / Time No Known Allergies Allergy Verified 06/25/22 12:45 Home Medications Medication Instructions Recorded Confirmed Type buspirone 7.5 mg tablet 7.5 mg PO DAILY 01/16/20 06/25/22 History fluoxetine 40 mg capsule 40 mg PO DAILY 01/16/20 06/25/22 History escitalopram oxalate 20 mg tablet 20 mg PO DAILY 06/19/22 06/25/22 History hydroxyzine pamoate 25 mg capsule 25 mg PO DAILY 06/19/22 06/25/22 History (Vistaril) omeprazole 40 mg capsule,delayed 40 mg PO DAILY 06/19/22 06/25/22 History release trazodone 100 mg tablet 100 mg PO HS 06/19/22 06/25/22 History Patient hx anesthesia problems: none Family hx anesthesia problems: none Results Review: All pre-operative results and documents have been reviewed as part of the pre- operative evaluation. PMFSH Past Medical History Medical History Anxiety COPD (chronic obstructive pulmonary disease) ETOH abuse Social History Social History (Updated 03/27/20 @ 19:03 by Jonathan Stratton MD) Smoking packs per day: 2 Smoking cigarettes per day: 40.0 Smoking status: Heavy tobacco smoker Tobacco type: cigarettes Alcohol intake: former Alcohol use details: Daily Substance use: current Substance use type: marijuana Living arrangements: with friend(s) Spiritual care concerns: No Anes - Eval Final PreProcedure Day of Procedure 06/25/22 10:15 Patient weight: normal Heart: regular rate and rhythm Lungs: clear to auscultation and normal air movement Airway: Mallampati scale class II Neurological: alert and oriented Last oral intake: >/= 8 hours ASA classification: III Emergent: no Anesthetic plan: proceed Anesthesia type and monitoring: general GIVS Results Review: All pre-operative results and documents have been reviewed as part of the pre- operative evaluation. Informed Consent: The patient's anesthetic plan and its attendant risks and benefits were discussed with the patient/family/POA. Questions were solicited and answers provided to the satisfaction of the patient/family/POA.
[2022-06-25 12:40] VITALS: BP 125/83; PULSE 91; RESP 20; TEMP 36.7; O2SAT 94
[2022-06-25] MEDS: LACTATED RINGERS 1,000 ML 150 ML IV CONT (13:22)
--- NOTE | 2022-06-25 13:59 | PM.HPGS ---
History of Present Illness History of Present Illness Consent: Risks, benefits, and alternatives have been discussed and questions answered. Patient agrees to proceed with procedure. Chief complaint: Epigastric pain, nausea, weight loss, Narrative: Justin Aj is a 51 year old male with nausea, upper abdominal pain and loss of appetite with subsequent weight loss, recently using ppi helping some. Never had scopes. Review of Systems Constitutional: Constitutional: Denies headache(s) and Denies weakness Eyes: Eyes: Denies blurry vision ENT: Reports Normal hearing present, Denies headache(s) and Denies neck pain Cardiovascular: Cardiovascular: Denies chest pain and Denies dyspnea Respiratory: Respiratory: Denies dyspnea Gastrointestinal: Gastrointestinal: Reports no additional gastrointestinal complaints Genitourinary: Genitourinary: Denies dysuria Musculoskeletal: Musculoskeletal: Denies neck pain Integumentary/Breasts: Skin/Breast: Denies dry skin Neurologic: Reports Normal hearing present, Denies headache(s) and Denies weakness Psychiatric: Psychiatric: Denies anxiety Endocrine: Endocrine: Denies change in body appearance Hematologic/Lymphatic: Hematologic/Lymphatic: Denies easy bleeding Allergic/Immunologic: Allergic/Immunologic: Denies urticaria PMF Past Medical History Medical History (Updated 06/25/22 @ 14:02 by Deonte Menendez MD) Anxiety Colon cancer screening COPD (chronic obstructive pulmonary disease) ETOH abuse Nausea Weight loss Social History Social History (Updated 03/27/20 @ 19:03 by Jonathan Stratton MD) Smoking packs per day: 2 Smoking cigarettes per day: 40.0 Smoking status: Heavy tobacco smoker Tobacco type: cigarettes Alcohol intake: former Alcohol use details: Daily Substance use: current Substance use type: marijuana Living arrangements: with friend(s) Spiritual care concerns: No Meds Home Medications and Allergies Home Medications Medication Instructions Recorded Confirmed Type buspirone 7.5 mg tablet 7.5 mg PO DAILY 01/16/20 06/25/22 History fluoxetine 40 mg capsule 40 mg PO DAILY 01/16/20 06/25/22 History escitalopram oxalate 20 mg tablet 20 mg PO DAILY 06/19/22 06/25/22 History hydroxyzine pamoate 25 mg capsule 25 mg PO DAILY 06/19/22 06/25/22 History (Vistaril) omeprazole 40 mg capsule,delayed 40 mg PO DAILY 06/19/22 06/25/22 History release trazodone 100 mg tablet 100 mg PO HS 06/19/22 06/25/22 History Allergies Allergy/AdvReac Type Severity Reaction Status Date / Time No Known Allergies Allergy Verified 06/25/22 12:45 Vital Signs Vital Signs - 24 hr 06/25/22 12:40 Temperature 98.0 F Pulse Rate 91 Respiratory Rate 20 Blood Pressure 125/83 Pulse Oximetry 94 Oxygen Delivery Room Air Exam Const: General: comfortable and no acute distress HENMT: Face/Nose/Sinus: Normal nares present Eyes: General: appearance normal, both eyes and all related structures Neck: Neck: no JVD Resp: Auscultation: clear to auscultation bilaterally Cardio: Rate: regular rate Rhythm: regular rhythm GI: Inspection: non-distended GI Palp: Yes Soft to palpation Skin: General skin exam: normal color Neuro: General: gait normal Speech: normal speech Extrem: General: normal to inspection Psych: Mental Status: mental status grossly normal Assessment and Plan Assessment and plan (1) Nausea: Code(s): R11.0 - Nausea Status: Acute Assessment and Plan: egd (2) Weight loss: Code(s): R63.4 - Abnormal weight loss Status: Acute (3) Colon cancer screening: Code(s): Z12.11 - Encounter for screening for malignant neoplasm of colon Status: Acute Assessment and Plan: colonoscopy
[2022-06-25 15:00] VITALS: BP 94/69; PULSE 74; RESP 14; O2SAT 93
[2022-06-25 15:10] VITALS: BP 106/91; PULSE 78; RESP 16; O2SAT 94
[2022-06-25 15:15] VITALS: BP 129/100; PULSE 77; RESP 18; O2SAT 95
--- NOTE | 2022-06-25 15:30 | WPDANESPN ---
Anes - Prog Note Post-Op Date/Time: 06/25/22 15:30 Cardiovascular status: normal Respiratory status: normal Airway patency: baseline Mental status: baseline Post-Op hydration status: normal Vital Signs: Last Vital Signs Temp 36.7 C 06/25/22 12:40 Pulse 77 06/25/22 15:15 Resp 18 06/25/22 15:15 BP 129/100 H 06/25/22 15:15 Pulse Ox 95 06/25/22 15:15 O2 Del Method Room Air 06/25/22 15:15 Pain Score (VAS): 0 I/O: Intake & Output 06/24/22 06/25/22 06/25/22 23:59 07:59 15:59 Intake Total 1160 Balance 1160 Post-procedural complaints: none Patient Feedback: Patient satisfied with anesthetic care.
== END 2022-06-25 15:37 | disposition home or self-care (01) ==
PROVIDERS: PCP Internal Medicine; Visit Provider Internal Medicine Gastroenterology
PROC: 0DJ08ZZ Inspection of Upper Intestinal Tract, Via Natural or Artificial Opening Endoscopic (ICD-10-PCS; CPT 43235; principal; 2022-06-25 14:30)
PROC: 0DJD8ZZ Inspection of Lower Intestinal Tract, Via Natural or Artificial Opening Endoscopic (ICD-10-PCS; CPT 45378; 2022-06-25 14:30)
DX: Z12.11 Encounter for screening for malignant neoplasm of colon (principal)
CPT/HCPCS: 45385; 43239

== ENCOUNTER 2022-07-11 09:53 | Outpatient (CLI) | payer OTHER, SELFPAY ==
--- NOTE | ~2022-07-11 | CT_ITS ---
CT of the Abdomen and Pelvis: Indication: Weight loss Technique: 2.5 mm axial scans were obtained through the abdomen and pelvis following intravenous adm inistration of 100 cc of Omnipaque 350. Dose reduction technique was used on this scan by utilizing a utomated exposure control and iterative reconstruction technique. The dose-length product (DLP) was 2 86.38 mGy-cm. Findings: Scans through the lung bases are unremarkable. The liver, spleen, pancreas, gallbladder, adrenals and left kidney are within normal limits. There is a 1.4 cm hypodense, noncystic lesion in the right kidney (axial image 84), indeterminate. There are atherosclerotic calcifications of the aorta. No lymphadenopathy. There is wall thickening of the sigmoid colon with probable diverticular disease. No abscess or free air. No bowel obstruction. Images through the pelvis were performed. Urinary bladder unremarkable. Prostate gland and seminal ve sicles are unremarkable. No ascites. Impression: 1.4 cm indeterminate right renal mass. Pre and postcontrast CT or MR recommended to assess for solid, enhancing lesion which would be suspicious for small renal cell carcinoma. Wall thickening of the sigmoid colon with probable diverticular disease. This likely represents muscu lar hypertrophy. Correlate for signs/symptoms of mild acute diverticulitis. Underlying neoplasm felt to be less likely, though not excluded. Consider colonoscopy if not performed in reasonable prior elsie eframe. Reviewed, dictated and finalized at [facility]. Impression: 1.4 cm indeterminate right renal mass. Pre and postcontrast CT or MR recommende d to assess for solid, enhancing lesion which would be suspicious for small waylon al cell carcinoma. Wall thickening of the sigmoid colon with probable diverticular disease. This l ikely represents muscular hypertrophy. Correlate for signs/symptoms of mild acu te diverticulitis. Underlying neoplasm felt to be less likely, though not exclu ded. Consider colonoscopy if not performed in reasonable prior timeframe.
== END 2022-07-11 09:54 | disposition home or self-care (01) ==
PROVIDERS: PCP Internal Medicine; Visit Provider Internal Medicine Gastroenterology
DX: R63.4 Abnormal weight loss (principal); R11.0 Nausea; N28.89 Other specified disorders of kidney and ureter; R93.3 Abnormal findings on diagnostic imaging of other parts of digestive tract
CPT/HCPCS: 74177; Q9967

== ENCOUNTER 2022-08-05 08:09 | Outpatient (CLI) | payer OTHER, SELFPAY ==
--- NOTE | ~2022-08-05 | CT_ITS ---
CT of the Abdomen and Pelvis: Indication: Renal mass Technique: 2.5 mm axial scans were obtained through the abdomen and pelvis prior to and following in travenous administration of 100 cc of Omnipaque 350. Dose reduction technique was used on this scan b y utilizing automated exposure control and iterative reconstruction technique. The dose-length produc t (DLP) was 484.00 mGy-cm. COMPARISON: 07/11/2022 Findings: Scans through the lung bases are unremarkable. The liver, spleen, pancreas, gallbladder, adrenals and left kidney are within normal limits. Again id entified is a 1.4 cm right renal mass with intermediate Hounsfield units on postcontrast images (seri es 6 image 71). Lesion is poorly delineated on precontrast images, but confidence in the expected reg ion of the lesion are similar to postcontrast Hounsfield units. Therefore, this likely represents a b enign lesion. There are atherosclerotic calcifications of the aorta. No lymphadenopathy. Sigmoid diverticulosis noted. Stable mild wall thickening of the sigmoid colon. No bowel obstruction. No abscess or free air. Images through the pelvis were performed. Urinary bladder unremarkable. No pelvic mass evident. No as cites. Impression: 1.4 cm right renal lesion, as detailed above. No definite postcontrast enhancement, which favors a be nign mass such as mildly complex cyst. Stable sigmoid diverticulosis. Reviewed, dictated and finalized at [facility]. Impression: 1.4 cm right renal lesion, as detailed above. No definite postcontrast enhancem ent, which favors a benign mass such as mildly complex cyst. Stable sigmoid diverticulosis.
== END 2022-08-05 08:10 | disposition home or self-care (01) ==
PROVIDERS: PCP Internal Medicine; Visit Provider Internal Medicine Gastroenterology
DX: K57.30 Diverticulosis of large intestine without perforation or abscess without bleeding (principal); N28.89 Other specified disorders of kidney and ureter
CPT/HCPCS: 74178; Q9967

== ENCOUNTER 2022-09-12 08:11 | Emergency (ER) | payer OTHER, SELFPAY ==
--- NOTE | ~2022-09-12 | XR_ITS ---
EXAMINATION: XR abdomen obstructive series DATE: 09/12/2022 08:48 INDICATION: Diarrhea with central abdominal pain TECHNIQUE: Upright and supine views of the abdomen were obtained. COMPARISON: None. FINDINGS: There are no dilated loops of bowel. There is a moderate volume of colonic stool. No free i ntraperitoneal gas is identified. The visualized lung bases are clear. IMPRESSION: 1. Nonobstructive bowel gas pattern. Reviewed, dictated and finalized at location A.
--- NOTE | 2022-09-12 08:13 | ED.ABDPAIN ---
HPI - Abdominal Pain General Chief Complaint: Nausea/Vomiting/Diarrhea Stated Complaint: stomach pain/diarrhea/fever Time Seen by Provider: 09/12/22 08:13 Source: patient Mode of arrival: ambulatory Limitations: no limitations History of Present Illness HPI narrative: Justin is a 51-year-old male patient presenting to the clinic today a day with complaints of abdominal cramping, diarrhea, and fever x5 days. He reports he had felt feverish last night and this morning. He was unable to take his temperature. Has been having sweats and chills with this. Reports the cramping comes and goes however he does have tenderness/tightness in his lower abdomen and left upper quadrant that is constant. Temperature was 37.1? C in the clinic. He denies any blood in his stools. Has been having diarrhea at least twice daily over the past 5 days. Also having nausea. Just had a colonoscopy/EGD at the end of May and had some polyps removed that came back benign/EGD showed small hiatal hernia without gastritis. Denies any diverticulitis or constipation. Related Data Home Medications Medication Instructions Recorded Confirmed fluoxetine 40 mg capsule 40 mg PO DAILY 01/16/20 06/25/22 escitalopram oxalate 20 mg tablet 20 mg PO DAILY 06/19/22 09/12/22 hydroxyzine pamoate 25 mg capsule 25 mg PO DAILY 06/19/22 09/12/22 (Vistaril) omeprazole 40 mg capsule,delayed 40 mg PO DAILY 06/19/22 09/12/22 release trazodone 100 mg tablet 100 mg PO HS 06/19/22 09/12/22 bupropion HCl 100 mg tablet,12 hr 10 mg PO DAILY 09/12/22 09/12/22 sustained-release buspirone 10 mg tablet mg 09/12/22 fluticasone fur. 100 mcg-umeclid inhalation 09/12/22 62.5 mcg-vilant 25 mcg inhalat.powder (Trelegy Ellipta) Allergies Allergy/AdvReac Type Severity Reaction Status Date / Time No Known Allergies Allergy Verified 06/25/22 12:45 Review of Systems Review of Systems: Pertinent positives per HPI. Patient denies any fever, chills, rash, headache, visual changes, dizziness, cough, runny nose, sore throat, shortness of breath, chest pain, palpitations, nausea, vomiting, diarrhea, constipation, abdominal pain, or any urinary issues. [facility] Past Medical History Medical History Anxiety Colon cancer screening COPD (chronic obstructive pulmonary disease) ETOH abuse Kidney lesion Nausea Weight loss Social History Social History Smoking packs per day: 2 Smoking cigarettes per day: 40.0 Smoking status: Heavy tobacco smoker Tobacco type: cigarettes Alcohol intake: former Alcohol use details: Daily Substance use: current Substance use type: marijuana Living arrangements: with friend(s) Spiritual care concerns: No Comments At the time of my signature, I reviewed and agree with the nursing past medical, surgical, social, and family history. There is no relevant family history pertinent to the patient complaint. Exam Narrative: General: Well-developed, well nourished, in no apparent distress Head: Normocephalic, atraumatic Eyes: Pupils equally round and reactive to light bilaterally, EOM intact, sclera and conjunctive clear, no discharge, lids normal Ears: TMs intact and clear, ear canals clear, no drainage, grossly hearing normal. Nose: Nares patent, no discharge, no inflammation, no sinus tenderness. Mouth: Oropharynx with redness and white patchy lesions to the soft palate, no masses, good dentition, MMM. Neck: Supple, trachea midline, no enlargement of anterior or posterior cervical nodes, no thyroid masses or goiter palpable. Cardio: Regular rate and rhythm, s1 and s2 normal, no murmur appreciated. Resp: Clear to auscultation bilaterally anteriorly and posteriorly, no rhonchi, rales, wheezing or rubs Abdomen: Soft, pliable, bowel sounds present in all quadrants, tender to palpation over the left u
[2022-09-12 08:18] VITALS: BP 125/96; PULSE 69; RESP 16; TEMP 37.1; O2SAT 97
== END 2022-09-12 09:30 | disposition home or self-care (01) ==
PROVIDERS: Emergency Provider Nurse Practitioner Family; PCP Internal Medicine
DX: K52.9 Noninfective gastroenteritis and colitis, unspecified (principal); B37.0 Candidal stomatitis; F17.210 Nicotine dependence, cigarettes, uncomplicated; J44.9 Chronic obstructive pulmonary disease, unspecified; F41.9 Anxiety disorder, unspecified
CPT/HCPCS: 74019; 87081; 87880; 99213; G0463

== ENCOUNTER 2022-12-30 17:02 | Emergency (ER) | payer OTHER, SELFPAY ==
[2022-12-30 17:10] VITALS: BP 161/94; PULSE 96; RESP 20; TEMP 37.1; O2SAT 96
--- NOTE | 2022-12-30 18:04 | ED.URI ---
HPI - URI/Sore Throat General Chief Complaint: Upper Respiratory Infection Stated Complaint: Chest Congestion/Headache Time Seen by Provider: 12/30/22 17:50 Source: patient, RN notes reviewed and old records reviewed Mode of arrival: ambulatory Limitations: no limitations History of Present Illness HPI Narrative: 52-year-old male who presents to [facility] with complaints of cough, congestion, headache, nasal congestion, body aches since Thursday. Patient reports that he has history of emphysema and continues to use tobacco daily. Patient reports that he has a Trilogy inhaler he uses daily. MD elicited complaint: cough, rhinorrhea, nasal congestion and other (headache and body aches.) Onset (ago): day(s) (5th day of symptoms) Severity: moderate Able to tolerate fluids by mouth: Yes Treatments prior to arrival: other (Mucinex) Related Data Home Medications Medication Instructions Recorded Confirmed fluoxetine 40 mg capsule 40 mg PO DAILY 01/16/20 06/25/22 escitalopram oxalate 20 mg tablet 20 mg PO DAILY 06/19/22 09/12/22 hydroxyzine pamoate 25 mg capsule 25 mg PO DAILY 06/19/22 09/12/22 (Vistaril) omeprazole 40 mg capsule,delayed 40 mg PO DAILY 06/19/22 09/12/22 release trazodone 100 mg tablet 100 mg PO HS 06/19/22 09/12/22 bupropion HCl 100 mg tablet,12 hr 10 mg PO DAILY 09/12/22 09/12/22 sustained-release buspirone 10 mg tablet mg 09/12/22 fluticasone fur. 100 mcg-umeclid inhalation 09/12/22 62.5 mcg-vilant 25 mcg inhalat.powder (Trelegy Ellipta) Allergies Allergy/AdvReac Type Severity Reaction Status Date / Time No Known Allergies Allergy Verified 12/30/22 17:17 Review of Systems Review of Systems: CONSTITUTIONAL: Report malaise, chills, sweats, or fever. EYES: Denies visual changes, redness, or discharge. ENT: Reports rhinorrhea, congestion, sinus pain,no otalgia and no sore throat. CARDIOVASCULAR: Denies chest pain, palpitations, or edema. RESPIRATORY: Reports cough.? Denies acute dyspnea. GASTROINTESTINAL: Denies abdominal pain, nausea, vomiting, diarrhea SKIN: Denies rash or itching. MUSCULOSKELETAL: Denies myalgia. NEUROLOGIC:reports headache. All systems reviewed & are unremarkable except as noted in HPI and below PMFSH Past Medical History Medical History Anxiety Colon cancer screening COPD (chronic obstructive pulmonary disease) ETOH abuse Kidney lesion Nausea Weight loss Social History Social History Smoking packs per day: 2 Smoking cigarettes per day: 40.0 Smoking status: Heavy tobacco smoker Tobacco type: cigarettes Alcohol intake: former Alcohol use details: Daily Substance use: current Substance use type: marijuana Living arrangements: with friend(s) Spiritual care concerns: No Comments At time of signature, agree with nursing past medical, surgical, social and family history. There is no relevant family history pertinent to the presenting complaint Exam Narrative: GENERAL: Well-appearing, well-nourished, and in no acute distress. HEAD: Normocephalic EYES: PERRLA, conjunctivae clear ENT: Nares clear, turbinates edematous and erythematous, clear discharge. Mucous membranes moist. TM pearly [place] with dull light reflex bilaterally; no tragal tenderness. Oropharynx erythematous without lesions. Tonsils not enlarged and without exudate, no drooling, no hoarseness, no trismus, uvula midline. NECK: Supple. No lymphadenopathy CHEST: Scattered wheezes to auscultation, breath sounds equal. Positive wheezing, no rhonchi, rales, or stridor. No respiratory distress, speaks in full sentences.SAO2 96% on room air HEART: Regular rate and rhythm. No murmur heard. SKIN: Warm, dry, no rash. NEURO: Alert and oriented x3. PSYCH: Normal mood and affect Course Course Emergency Course: Patient is aware of diagn
== END 2022-12-30 18:14 | disposition home or self-care (01) ==
PROVIDERS: Emergency Provider Registered Nurse; PCP Internal Medicine
DX: J40 Bronchitis, not specified as acute or chronic (principal); F17.210 Nicotine dependence, cigarettes, uncomplicated; Z20.822 Contact with and (suspected) exposure to COVID-19
CPT/HCPCS: 87081; 87426; 87804; 87880; 99213; C9803; G0463

== ENCOUNTER 2025-02-16 08:06 | Emergency (ER) | payer OTHER, SELFPAY ==
[2025-02-16 08:10] VITALS: BP 175/97; PULSE 83; RESP 20; TEMP 36.9; O2SAT 98
--- NOTE | 2025-02-16 08:16 | ED.URI ---
HPI - URI/Sore Throat General Chief Complaint: Upper Respiratory Infection Stated Complaint: chest/head congestion Time Seen by Provider: 02/16/25 08:16 Source: patient, RN notes reviewed and old records reviewed Mode of arrival: ambulatory Limitations: no limitations History of Present Illness HPI Narrative: 54 year old male presents to [facility] care with complaints of 7 day history of head congestion which has progressed to include chest congestion also. Patient reports that he thinks he had a fever when he was first ill. Patient reports that his cough is productive and he has noted wheezing especially at night and he has not been resting well. Patient reports that he has been stopped up in his sinus also and his appetite has been decreased. Patient reports that he has used his Trelegy inhaler.Patient reports that he still smokes cigarettes daily reports 1 ppd. MD elicited complaint: cough Pertinent past history: COPD and other (smoker) Onset (ago): day(s) (7) Consistency: constant Severity: moderate Description of mucous: yellow Able to tolerate fluids by mouth: Yes Treatments prior to arrival: other (inhaler) Related Data Home Medications ?Medication ?Instructions ?Recorded ?Confirmed ?Last Taken ?Type fluoxetine 40 mg capsule 40 mg PO DAILY 01/16/20 06/25/22 Unknown History escitalopram oxalate 20 mg tablet 20 mg PO DAILY 06/19/22 09/12/22 Unknown History hydroxyzine pamoate 25 mg capsule 25 mg PO DAILY 06/19/22 09/12/22 Unknown History (Vistaril) omeprazole 40 mg capsule,delayed 40 mg PO DAILY 06/19/22 09/12/22 Unknown History release trazodone 100 mg tablet 100 mg PO HS 06/19/22 09/12/22 Unknown History bupropion HCl 100 mg tablet,12 hr 10 mg PO DAILY 09/12/22 09/12/22 Unknown History sustained-release buspirone 10 mg tablet mg 09/12/22 Unknown History fluticasone fur. 100 mcg-umeclid inhalation 09/12/22 Unknown History 62.5 mcg-vilant 25 mcg inhalat.powder (Trelegy Ellipta) Allergies Allergy/AdvReac Type Severity Reaction Status Date / Time No Known Allergies Allergy Verified 12/30/22 17:17 Review of Systems Review of Systems: CONSTITUTIONAL: Reports malaise,no chills, sweats, states maybe fever when first ill. EYES: Denies visual changes, redness, or discharge. ENT: Reports rhinorrhea, congestion, sinus pain, no otalgia and no sore throat. CARDIOVASCULAR: Denies chest pain, palpitations, or edema. RESPIRATORY: Reports productive cough.? Denies dyspnea. GASTROINTESTINAL: Denies abdominal pain, nausea, vomiting, diarrhea SKIN: Denies rash or itching. MUSCULOSKELETAL: Denies myalgia. NEUROLOGIC: reports headache. All systems reviewed & are unremarkable except as noted in HPI and below PMFSH Past Medical History Medical History Testicular cyst removed Kidney lesion Colon cancer screening Weight loss Nausea COPD (chronic obstructive pulmonary disease) Anxiety ETOH abuse no alcohol for 5 years Social History Social History (Updated 02/16/25 @ 08:32 by Irasema Marr APRN) Smoking packs per day: 2 Smoking cigarettes per day: 40.0 Smoking status: Heavy tobacco smoker Tobacco type: cigarettes Additional smoking assessment comments: reports now 1 pack daily Alcohol intake: former Alcohol use details: former daily has been sober for 5 years Substance use: current Substance use type: marijuana Living arrangements: with friend(s) Gender identity (if verbalized by the patient): Male Spiritual care concerns: No Comments At time of signature, agree with nursing past medical, surgical, social and family history. There is no relevant family history pertinent to the presenting complaint Exam Narrative: GENERAL: Well-appearing, well-nourished, and in no acute distress. HEAD: Normocephalic EYES: PERRLA, conjunctivae clear ENT: Nares clear, turbinates edematous and erythematous, clear-yellow discharge,sinus pressure and headache. Mucous membranes moist. TM pearly bar[place]ona with dull light reflex bilaterally; no tragal tenderness. Oropharynx erythematous without lesions. Tonsils not enlarged and without exudate, no drooling, no hoarseness, no trismus, uvula midline.post nasal drainage present. NECK: Supple. No lymphadenopathy CHEST: Coarse breath sounds, breath sounds equal. No wheezing, rhonchi, rales, or stridor. No respiratory distress, speaks in full sentences.productive cough noted SAO2 98% on room air HEART: Regular rate and rhythm. No murmur heard. SKIN: Warm, dry, no rash. NEURO: Alert and oriented x3. PSYCH: Normal mood and affect Course Course Emergency Course: Patient is aware of diagnosis, understands and agrees to treatment plan.? Anticipatory guidance given.? Patient agrees to follow-up as directed and is aware of reasons to seek care at the emergency department. Portions of this record may have been created with voice recognition software Level of Care: Express Care Visit Vital Signs Vital signs: Vital Signs Temperature 36.9 C 02/16/25 08:10 Pulse Rate 83 02/16/25 08:10 Respiratory Rate 20 02/16/25 08:10 Blood Pressure 175/97 H 02/16/25 08:10 Pulse Oximetry 98 02/16/25 08:10 Oxygen Delivery Room Air 02/16/25 08:10 Temperature 36.9 C 02/16/25 08:10 Pulse Rate 83 02/16/25 08:10 Respiratory Rate 20 02/16/25 08:10 Blood Pressure 175/97 H 02/16/25 08:10 Pulse Oximetry 98 02/16/25 08:10 Oxygen Delivery Room Air 02/16/25 08:10 Reviewed MDM - URI/Sore Throat MDM Narrative Medical decision making narrative: Differential diagnosis considered: Lovell virus, strep pharyngitis, allergic rhinitis, upper respiratory tract infection, sinusitis, rhinosinusitis, nasopharyngitis. viral pharyngitis, otitis media, otitis externa, pneumonia, bronchitis, viral cough syndrome, viral syndrome, and influenza.? Exam findings show no acute concerns or changes; patient is non-toxic appearing and is in no distress.? Patient is appropriate for outpatient treatment and follow-up. Differential Diagnosis Differential diagnosis: Likely upper respiratory infection, sinusitis, viral infection, bronchitis and other (acute cough) Medical Records Attestation: I reviewed the patient's medical records. Lab Data Attestation: I reviewed the patient's lab results. Critical Care Time Critical Care Time Critical Care Time: No Discharge Plan Discharge Clinical Impression: Bronchitis Patient Disposition: Home Condition: Stable Instructions: Antibiotic Form, Acute Bronchitis (ED) Additional Instructions: Increase fluids especially juices and water [id number] cough and cold medicine of your choice for your symptoms. Recommend Robitussin DM or Delsym Albuterol inhaler as prescribed use 4 times daily for the next 2 days then as needed up to 4 times a day Continue your inhaler/nebulizer as directed Steroids as directed--take with food heat to the face 20-30 minutes 4-6 times a day for pain Salt water gargles, throat lozenges or throat sprays as desired Antibiotic as directed--finished the medication If your symptoms persist, change or worsen significantly before you can contact your personal physician then please, without delay, go to the emergency department for further evaluation. Follow-up with PCP in 7-10 days or sooner if needed Follow up with PCP soon in regards to your blood pressure which is elevated above threshold for referral. Blood pressure above 120/80 may indicate pre-hypertension. Patient Language: Swedish Prescriptions: New albuterol sulfate [Ventolin HFA] 90 mcg/actuation HFA aerosol inhaler 2 puff inhalation QID PRN (Reason: shortness of breath or wheezing) Qty: 8.5 0RF azithromycin 250 mg tablet See Rx Instructions .ROUTE .COMPLEX Qty: 6 0RF Rx Instructions: For 250 mg dose pack: take 500 mg today (day 1), then 250 mg for 4 days (days 2-5) prednisone 20 mg tablet 40 mg PO DAILY 5 Days Qty: 10 0RF No Action fluoxetine 40 mg capsule 40 mg PO DAILY albuterol sulfate 90 mcg/actuation HFA aerosol inhaler 2 puff inhalation QID PRN (Reason: shortness of breath or wheezing) Qty: 6.7 0RF Rx Instructions: Up to 4 times daily for shortness of breath azithromycin 250 mg tablet See Rx Instructions .ROUTE .COMPLEX Qty: 6 0RF Rx Instructions: For 250 mg dose pack: take 500 mg today (day 1), then 250 mg for 4 days (days 2-5) prednisone 20 mg tablet 20 mg PO BID Qty: 10 0RF bupropion HCl 100 mg tablet sustained-release 12 hr 10 mg PO DAILY buspirone 10 mg tablet Trelegy Ellipta 100-62.5-25 mcg blister with device INHALATION nystatin 100,000 unit/mL suspension 5 ml PO QID 14 Days Qty: 280 0RF Rx Instructions: swish and swallow hyoscyamine sulfate [Levsin] 0.125 mg tablet 0.125 mg PO QID PRN (Reason: dyspepsia) 3 Days Qty: 12 0RF promethazine 25 mg tablet 25 mg PO TID PRN (Reason: nausea and vomiting) 3 Days Qty: 10 0RF omeprazole 40 mg capsule,delayed release(DR/EC) 40 mg PO DAILY trazodone 100 mg tablet 100 mg PO HS hydroxyzine pamoate [Vistaril] 25 mg capsule 25 mg PO DAILY escitalopram oxalate 20 mg tablet 20 mg PO DAILY Follow-up/Referrals: Bernard Castro MD [Primary Care Provider, Hospitalist] Time of Disposition: 08:37 Quality Earnestine Coma Scale Eyes: Open Verbal: Oriented and Alert Motor: Follows Commands Earnestine Coma Total Score: 15
--- OUTSIDE RECORDS SUMMARY | 2025-02-16 08:19 | XMS_ITS | Clinical Summary ---
Author Organization [facility] [address] Address [address] [place] [address] Care Team Providers Care Brickmason Supervisor Name Role Phone Keshia Blackburn MD Unavailable [phone] Adin Barboza MD Primary Care Provider [phone] Allergies No known active allergies Medications No known medications Active Problems Problem Noted Date Diagnosed Date Administrative encounter 11/10/2024 Assessment & Plan (11/10/2024 4:43 PM CDT): DMV form provided; states that he was previously asked to complete the form due to a medication on his list that was flagged. He states he's been clean from EtOH use for 5+ years. Physical exam is reassuring; mood appropriate; neuro exam intact. SBP is appropriate/at goal. Has been under my care for approximately 1 month. - Completed DMV form Screening due 10/20/2024 Assessment & Plan (10/20/2024 8:36 AM CDT): PSA as part of screening Encounter to establish care with new doctor 09/28 Assessment & Plan (10/20/2024 8:37 AM CDT): Requesting to complete DMV forms; release of records ordered. - follow up in 2-3 weeks for completion of forms based on records. Alcohol dependence with withdrawal 01/12/2020 Assessment & Plan (01/12/2020 7:21 AM CDT): Patient has been drinking a 5th of vodka daily for the last few weeks. He last had alcohol on the day of presentation. He is currently feeling anxious and tremulous. Will start patient on Librium 25 mg t.i.d. with alcohol withdrawal scale. Will start patient on multivitamin, thiamine and folic acid. Will check magnesium and phosphate. Continue to monitor. Wheezing 01/12/2020 Assessment & Plan (01/12/2020 7:20 AM CDT): Bilateral expiratory wheezing at this time. Patient has no diagnosis of asthma or COPD. He is a smoker. Will order albuterol. Elevated LFTs 01/12/2020 Assessment & Plan (01/12/2020 7:20 AM CDT): Most likely due to alcohol abuse. Will continue to monitor. Hypoxia 01/12/2020 Assessment & Plan (01/12/2020 7:19 AM CDT): Briefly while patient was sleeping. SpO2 was 85%. He was placed on nasal cannula oxygen. Will wean as tolerated. Transaminitis 01/12/2020 Simple chronic bronchitis 01/12/2020 Severe malnutrition 09/08/2018 Depression with suicidal ideation 09/07/2018 Assessment & Plan (01/12/2020 7:23 AM CDT): Patient had suicidal ideation on presentation. Denies any suicidal or homicidal ideation at this time. Suicide precautions. Will consult psych. Continue fluoxetine. Assessment & Plan (09/07/2018 11:36 PM CDT): Patient was feeling hopeless with thoughts of hurting himself when he called EMS. Patient currently has a process safety specialist. Suicide precautions. Will consult Psychiatry. It continue to monitor. Denies any suicidal ideation at this time. Denies any homicidal ideation. Patient does not have a plan. Alcohol abuse 09/07/2018 Assessment & Plan (09/07/2018 11:37 PM CDT): Patient has been drinking for 4 days straight. States he has had 10 tall cans of beers daily with minimal food and water intake. Patient does have a history of alcohol abuse and has had DTs in the past, most recently it was 4 years ago. Patient having minimal tremors at this time. He is on alcohol withdrawal Assessment Scale. Continue to monitor. Polysubstance abuse 09/07/2018 Assessment & Plan (01/12/2020 7:19 AM CDT): Patient smoked crack cocaine once. He also uses marijuana daily. Assessment & Plan (09/07/2018 11:33 PM CDT): Patient uses marijuana daily and also used cocaine last evening. Prior to that he states he has not used cocaine a long time. Polycythemia 09/07/2018 Assessment & Plan (09/07/2018 11:34 PM CDT): Most likely due to hemoconcentration as patient has had very little water intake in last 4 days. Patient had hemoglobin of 15.9 2 weeks ago. Patient has received IV fluids, will continue to monitor. Leukocytosis 09/07/2018 Assessment & Plan (09/07/2018 11:35 PM CDT): Of unknown significance. Patient denies any signs of infection at this time. Could be hemoconcentration. Will continue to monitor. Anxiety 09/07/2018 Assessment & Plan (01/12/2020 7:21 AM CDT): Continue BuSpar Assessment & Plan (09/07/2018 11:34 PM CDT): Continue BuSpar Moderate episode of recurrent major depressive d isorder 11/13/2017 Assessment & Plan (01/12/2020 7:19 AM CDT): Continue fluoxetine Assessment & Plan (09/07/2018 11:34 PM CDT): With thoughts of helplessness and suicidal ideation. Patient has been on Prozac which has been resumed. Psychiatry has been consulted. Assessment & Plan (11/13/2017 10:02 PM CDT): Psychological condition is worsening. Medication changes per orders. Psychological condition will be reassessed in 4 weeks Will increases fluoxetine to 60mg daily. .He believes the fluoxetine is working , but he has increased stress and anxiety recently. Will also increase buspar to TID from BID. I told him to continue to take it twice/day and then take a third one as needed daily. F/u [address] Haley. History of alcoholism 11/21/2016 Assessment & Plan (09/07/2018 11:35 PM CDT): Patient was on Antabuse Tobacco use disorder 11/21/2016 Assessment & Plan (10/20/2024 8:36 AM CDT): Chronic. Currently smokes, 20+ years Declines NRT at this time. Assessment & Plan (01/12/2020 7:20 AM CDT): Patient currently smoking 1.5 packs of cigarettes per day. He is not interested in nicotine patch. Assessment & Plan (09/07/2018 11:33 PM CDT): Patient smokes 1.5 to 2 packs a day and has done so for 35 years. He has a nicotine patch. Prehypertension 11/21/2016 Seizure disorder 11/21/2016 Suicidal ideation Alcoholic intoxication without complication COPD exacerbation Immunizations Immunization Administration Dates Next Due Influenza, Quadrivalent, Spl it, Preservative Free, Intradermal 04/17/2015 Influenza, Unspecified 12/28/2017(Deferr ed: Patient Refused),12/28/2017(Deferred: Patient Refused) Tdap 12/19/2020,09/11/2014 Surgical History Surgery Date Site/Laterality Comments OTHER SURGICAL HISTORY Cystic testicular dysplasia: excision Medical History Medical History Date Comments Hx Other Medical Cystic testicul ar dysplasia; Comments: OAC 04/17/2015 - Depression 2014 Depression; Comm ents: OAC 04/17/2015 - Seizure disorder (HCC) 2006 Seizure d isorder; Comments: OAC 04/17/2015 - Alcohol abuse Drug abuse Family History Medical History Relation Name Comments Stroke Father Stroke; Hypertension Other Family history of Hypertension; Relation Name Status Comments Father Other Social History Tobacco Use Types Packs/Day Years Used Date Smoking Tobacco: Heavy Smoker Cigarettes 1.5 33 Smokeless Tobacco: Former Tobacco Cessation:Ready to Q uit: Not Asked; Counseling Given: Not Answered Comments:Smoking History Packs/day: 1 Packs Alcohol Use Standard Drinks/Week Comments Not Currently 0 (1 standard drink = 0.6 oz pur e alcohol) 32 beer in past 4 days PHQ-2 Answer Date Recorded PHQ-2 Total Score (If total score is 3 or more points, staff should administer the PHQ-9) 0 11/10/2024 AUDIT-C Answer Date Recorded Q1: How often do you have a drink containing alcohol? Never 11/10/2024 Q2: How many drinks containi ng alcohol do you have on a typical day when you are drinking? Patient does not drink Q3: How often do you have si x or more drinks on one occasion? 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 Gender Identity Not on file Sexual Orientation Not on file Last Filed Vital Signs Vital Sign Reading Time Taken Comments Blood Pressure 128/84 11/10/2024 4:00 PM CDT Pulse 72 11/10/2024 4:00 PM CDT Temperature 36.3 C (97.4 F) 01/15/2020 3:00 AM CDT Respiratory Rate 16 11/10/2024 4:00 PM CDT Oxygen Saturation 97% 10/20/2024 7:54 AM CDT Inhaled Oxygen Concentration - - Weight 66.2 kg (146 lb) 11/10/2024 4:00 PM CDT Height 182.9 cm (6' 0.01) 11/10/2024 4:00 PM CD T Body Mass Index 19.8 11/10/2024 4:00 PM CDT Plan of Treatment Health Maintenance Due Date Last Done Comments Colon Cancer Screening-Colonoscopy 1968 Hepatitis C Screening 1968 Hepatitis B Screening 1986 Regular Well Visit/Exam 18-64 1986 Pneumococcal vaccine <65 (1 of 2 - PCV) 12/17/1987 Lung Cancer Screening 2018 Zoster Vaccine (1 of 2) 2018 Influenza Vaccine (#1) 2024 04/17/2015 Depression Screening 11/10/2025 11/10/2024, 10/20/2024, 10/11/2018, Additional history exists Prostate Cancer Screening-PSA 10/20/2026 10/20/2024 DTaP/Tdap/Td Vaccine (3 - Td or Tdap) 12/19/2030 12/19/2020, 09/11/2014 Procedures Procedure Name Priority Date/Time Associated Diagnosis Comments PSA SCREEN Routine 10/20/2024 8:58 AM CDT Screening PSA (prostate specific antigen) from Last 3 Months or Most Recently Relevant to Health Maintenance Results * PSA screen (10/20/2024 8:58 AM CDT) PSA-Total 0.86 <=3.90 ng/mL [employer] [facility] (ORIENT) Comment: Interpretive Data AGE SEX REFERENCE INTERVAL 0 minutes-150 years Female None 0 minutes-49 years Male None 50-59 years Male 0-3.90 60-69 years Male 0-5.40 70-79 years Male 0-6.20 80-150 years Male 0-6.20 The Tran PSA Total assay procedure was used. Results from different manufacturers or methods may not be comparable. Serial testing should be performed using the same method. Current interpretive data last revised 21. Blood 10/20/2024 8:58 AM CDT 10/20/2024 9:18 AM CDT us Adin Barboza MD LAB BLOOD ORDERABLES Final R esult [facility]BONE (ORIENT) [facility] Department [place] [address] from Last 3 Months or Most Recently Relevant to Health Maintenance Insurance [facility] PL[facility] PL[facility] Advance Directives For more information, please contact: [phone] * Full Code (Latest Code Status on File) Date Activated Date Inactivated Comments 01/12/2020 7:18 AM 01/15/2020 3:05 PM * Full Code Date Activated Date Inactivated Comments 09/07/2018 11:32 PM 09/10/2018 5:49 PM * Full Code Date Activated Date Inactivated Comments 09/07/2018 4:24 PM 09/07/2018 11:32 PM Care Teams Brickmason Supervisor Relationship Specialty Start Date End Date Adin Barboza MD [address] [place] [address] DR BAUMANN [address] [place] [id number] PCP - General Family Medicine 10/20/24 Keshia Blackburn MD Pulmonary Disease 09/10/18
--- OUTSIDE RECORDS SUMMARY | 2025-02-16 08:21 | XMS_ITS | Clinical Summary ---
Author Organization [facility] Address [address] [place] [address] Phone Care Team Providers Care Jet Dyeing Machine Tender Name Role Phone Provider, Unknown Primary Care Provider Unavaila ble Allergies No known active allergies Medications busPIRone (BUSPAR) 10 MG Tablet 11/14/2020 Active escitalopram (LEXAPRO) 20 MG Tablet 11/02/2020 Active hydrOXYzine (VISTARIL) 25 MG Capsule 12/17/2020 Active traZODone (DESYREL) 150 MG Tablet 12/12/2020 Active HYDROcodone-zackary taminophen (NORCO) 5-325 MG TabletIndicatio ns:Contusion of left forearm, initial encounter Take 1 Tablet by mouth every 8 hours as needed for Moderate or more severe pain. 12 Tablet 12/19/2020 Active Immunizations Immunization Administration Dates Next Due TDAP Vaccine 12/19/2020 Social History Tobacco Use Types Packs/Day Years Used Date Smoking Tobacco: Never Smokeless Tobacco: Never Alcohol Use Standard Drinks/Week Comments Never 0 (1 standard drink = 0.6 oz pur e alcohol) Sex and Gender Information Value Date Recorded Sex Assigned at Not on file Legal Sex Male 11:05 PM CDT Gender Identity Not on file Sexual Orientation Not on file Last Filed Vital Signs Vital Sign Reading Time Taken Comments Blood Pressure 133/102 12/19/2020 2:00 PM CDT Pulse 64 12/19/2020 2:00 PM CDT Temperature 36.2 C (97.1 F) 12/19/2020 12:54 PM CDT Respiratory Rate 18 12/19/2020 12:54 PM CDT Oxygen Saturation 95% 12/19/2020 2:00 PM CDT Inhaled Oxygen Concentration - - Weight 71.7 kg (158 lb) 12/19/2020 12:54 PM CDT Height 182.9 cm (6') 12/19/2020 12:54 PM CDT Body Mass Index 21.43 12/19/2020 12:54 PM CDT Plan of Treatment Health Maintenance Due Date Last Done Comments Hepatitis C Virus (HCV) Screening 1968 Varicella Immunization (1 of 2 - 13+ 2-dose series) 1981 Hepatitis B Immunization (1 of 3 - 19+ 3-dose series) 12/17/1987 Cologuard 2013 Colonoscopy 2013 Colorectal Cancer Screening 2013 Immunochemical Fecal Occult Blood 2013 Pneumococcal Immunization (5 0+ years) (1 of 1 - PCV) 2018 Zoster Immunization (1 of 2) 2018 Influenza Immunization (#1) 2024 04/17/2015 SARS-COV-2 Immunization ( - 2024- season) 2024 Respiratory Syncytial Virus (RSV) Immunization (Adult) (1 - 1-dose 75+ series) 12/17/2043 DTaP/Tdap/Td Immunization Discontinued 2020, 09/11/2014 Human Papillomavirus (HPV) Immunization Aged Out No longer eligible based on patient's age to complete this topic Meningococcal Immunization (ACWY) Aged Out No longer eligible based on patient's age to complete this topic Rotavirus Immunization Aged Out No lo nger eligible based on patient's age to complete this topic Insurance GENERIC Care Teams Jet Dyeing Machine Tender Relationship Specialty Start Date End Date Provider, Unknown UNKNOWN PCP - General 12/19/20
== END 2025-02-16 08:53 | disposition home or self-care (01) ==
PROVIDERS: Emergency Provider Registered Nurse; PCP Internal Medicine
DX: J40 Bronchitis, not specified as acute or chronic (principal); J44.9 Chronic obstructive pulmonary disease, unspecified; F41.9 Anxiety disorder, unspecified; F17.210 Nicotine dependence, cigarettes, uncomplicated; F12.90 Cannabis use, unspecified, uncomplicated
CPT/HCPCS: 99213; G0463